=== PATIENT | female | born 1985 | race Caucasian/White ===

== ENCOUNTER 2016-12-09 17:55 | Emergency (ER) | payer SELFPAY ==
[2016-12-09 18:22] LABS: Bilirubin Negative (Negative); Blood, Urine Large (Negative); Clarity Cloudy (Clear); Glucose, Urine (Dipstick) Negative (Negative); Leukocyte Large (Negative); Nitrite Negative (Negative); Protein, Urine (Dipstick) 100 mg/dL (Neg-Trace); Specific Gravity, Urine 1.015 (1.005-1.030)
[2016-12-09 18:23] LABS: Pregnancy Test - Urine (BHCG) Negative (Negative); Pregu Control Background? CLEAR/WHITE (CLR/WHITE); Pregu Control Bar Appear? YES (CONTROL BAR); Specific Gravity 1.015 (1.002-1.036)
[2016-12-09] MEDS ORDERED: Ondansetron ODT 4 MG TAB ONE (18:23)
[2016-12-09] MEDS ORDERED: HYDROcodone/Acetaminophen 10/325 mg Tablet ONE (18:23)
[2016-12-09] MEDS ORDERED: Ibuprofen 800 MG TAB ONE (18:23)
[2016-12-09] MEDS ORDERED: cefTRIAXone\\ROCEPHIN 1 GM VIAL ONE (18:23)
[2016-12-09] MEDS ORDERED: Lidocaine 1% 20 ML MDV ONE (18:24)
[2016-12-09 18:33] LABS: Bacteria/HPF Rare-Few HPF (None Seen); RBC/HPF 21-50 HPF (0-3)
== END 2016-12-09 18:49 | disposition home or self-care (01) ==
LOC: MADERS 17:55
DX: N39.0 Urinary tract infection, site not specified (principal); F41.9 Anxiety disorder, unspecified
CPT/HCPCS: 81003; 81015; 81025; 87077; 87086; 87186; 96372; J0696; J2001; Q0162

== ENCOUNTER 2016-12-10 18:41 | Emergency (ER) | payer SELFPAY ==
[2016-12-10] MEDS ORDERED: Acetaminophen 325 MG TAB ONE (19:59)
[2016-12-10 20:19] LABS: ALT (SGPT) 13 U/L (8-55); AST (SGOT) 13 U/L (5-34); Albumin 3.7 g/dL (3.5-5.0); Alkaline Phosphatase 94 U/L (40-150); Anion Gap 15 mmol/L (10-20); BUN (Urea Nitrogen) 10 mg/dL (7.0-18.7); Bilirubin, Total 0.5 mg/dL (0.2-1.2); Calc. Creatinine Clearance 0 mL/min (70-130); Calcium 9.2 mg/dL (7.8-10.44); Carbon Dioxide 25 mmol/L (22-29); Chloride 98 mmol/L (98-107); Estimated GFR-MDRD 64; Globulin 3.4 g/dL (2.4-3.5); Glucose 107 mg/dL (70-105); Potassium 3.9 mmol/L (3.5-5.1); Protein, Total 7.1 g/dL (6.0-8.3); Sodium 134 mmol/L (136-145)
[2016-12-10 20:21] LABS: MDiff Complete? YES
[2016-12-10 20:22] LABS: Hemoglobin 12.7 g/dL (12.0-16.0); Lymphocytes 9 % (21-51); Mean Corpuscular HGB CONC 33.6 g/dL (32.0-36.0); Mean Corpuscular Hemoglobin 29.8 pg (27.0-31.0); Mean Corpuscular Volume 88.7 fl (81.0-99.0); Mean Platelet Volume 7.6 fL (7.4-10.4); Monocytes 10 % (0-10); Neutrophil 81 % (42-75); PLT Morphology Comment Appears Adequate; Platelet Count 199 thou/uL (130-400); RBC Distribution Width 12.6 % (11.5-14.5); RBC Morphology Normal; Red Blood Cell (RBC) Count 4.24 mill/uL (4.20-5.40); White Blood Cell (WBC) Count 9.3 thou/uL (4.8-10.8)
== END 2016-12-10 20:41 | disposition home or self-care (01) ==
LOC: MADERS 18:41
DX: N39.0 Urinary tract infection, site not specified (principal); F41.9 Anxiety disorder, unspecified; Z79.899 Other long term (current) drug therapy
CPT/HCPCS: 36415; 80053; 85025; 99283

== ENCOUNTER 2021-03-21 17:45 | Emergency (ER) | payer SELFPAY | END 2021-03-21 18:53 | disposition home or self-care (01) | LOC: MADERS 17:45 | DX: I10 Essential (primary) hypertension (principal); F41.9 Anxiety disorder, unspecified; G56.01 Carpal tunnel syndrome, right upper limb; K05.219 Aggressive periodontitis, localized, unspecified severity | CPT/HCPCS: 99283 ==